=== PATIENT | female | born 1975 | race Caucasian/White ===

== ENCOUNTER 2021-02-25 15:59 | Outpatient (CLI) | payer OTHER, SELFPAY ==
--- NOTE | 2021-02-25 16:08 | XR_ITS ---
WS: [id number] FOOT RIGHT TECHNIQUE: 3 views of the right foot CLINICAL INFORMATION: RIGHT FOOT PAIN COMPARISON: None. FINDINGS: No evidence of acute fracture or dislocation. Normal tarsal metatarsal alignment. Normal calcaneus. N ormal visualized talar dome. Plantar calcaneal spurring. Achilles enthesophyte. XR/XR foot RT min 3V* [id number] IMPRESSION: Small plantar calcaneal spur. Achilles enthesophyte.
== END 2021-02-25 16:00 | disposition home or self-care (01) ==
PROVIDERS: Visit Provider Nurse Practitioner Family
DX: M79.671 Pain in right foot (principal); M77.31 Calcaneal spur, right foot
CPT/HCPCS: 73630

== ENCOUNTER 2024-12-24 20:28 | Emergency (ER) | payer OTHER, SELFPAY ==
[2024-12-24 21:01] VITALS: BP 164/74; PULSE 104; RESP 18; TEMP 36.7; O2SAT 97; BMI 40.2
[2024-12-24 21:32] VITALS: BP 157/98; PULSE 88; O2SAT 95
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
[2024-12-24] MEDS: HYDROcodone-acetaminophen 5-325 mg Tablet 1 TAB PO (21:46)
[2024-12-24] MEDS: neomycin-poly-bacitracin oint 0.9 gm Pkt 1 APPLIC TOPICAL (21:46)
[2024-12-24 21:55] VITALS: BP 157/98; PULSE 93; O2SAT 99
== END 2024-12-24 21:57 | disposition home or self-care (01) ==
PROVIDERS: Emergency Provider Emergency Medicine
DX: T23.102A Burn of first degree of left hand, unspecified site, initial encounter (principal); X19.XXXA Contact with other heat and hot substances, initial encounter
CPT/HCPCS: 99283; J9999